=== PATIENT | male | born 1940 | race Hispanic/Latino ===

== ENCOUNTER 2022-04-04 10:15 | Emergency (ER) | payer OTHER ==
[~2022-04-04] VITALS: Ht 167.6 cm; Wt 75.3 kg
[2022-04-04 11:12] LABS: HEMATOCRIT 38.2 % (42-54); MEAN CORPUSCULAR HEMOGLOBIN 32.4 pg (27.0-33.0); MEAN CORPUSCULAR VOLUME 95.3 fL (79-99); PLATELET COUNT (AUTO) 157 K/uL (130-400); RED BLOOD CELL COUNT(AUTO) 4.01 MIL/uL (4.50-6.20); RED CELL DISTRIBUTION WIDTH 12.8 % (11.0-15.5); WHITE BLOOD COUNT (AUTO) 5.5 K/uL (4.8-10.8)
[2022-04-04 11:31] LABS: ALBUMIN 3.9 g/dL (3.5-5.0); POTASSIUM 4.1 mmol/L (3.5-5.1)
[2022-04-04 11:38] LABS: B-TYPE NATRIURETIC PEPTIDE 26 pg/mL (0-100)
[2022-04-04] MEDS ORDERED: KETOROLAC 60 MG VIAL (30MG/ML) IM ONE (12:30)
[2022-04-04 12:39] LABS: LYMPHOCYTES % (MANUAL) 31 % (22-44); MAN.DIFF COMMENT-IMPRESSION MANUAL DIFFERENTIAL; MONOCYTES % (MANUAL) 9 % (2-9); PLATELET MORPHOLOGY COMMENT ADEQUATE; SEGMENTED NEUTROPHILS % 60 % (40-70)
[2022-04-04] MEDS ORDERED: ACET-2113 PO (13:38)
[2022-04-04 14:02] VITALS: BP 144/60
== END 2022-04-04 14:04 | disposition home or self-care (01) ==
LOC: EDH 10:15
DX: M19.90 Unspecified osteoarthritis, unspecified site (principal); M47.812 Spondylosis without myelopathy or radiculopathy, cervical region; E78.00 Pure hypercholesterolemia, unspecified; I10 Essential (primary) hypertension
CPT/HCPCS: 99285; 71045; 84484; 80053; 83880; 85025; 36415; 72040; 96372; 93005; J1885